=== PATIENT | male | born 1975 | race Caucasian/White ===

== ENCOUNTER 2018-06-30 11:10 | Inpatient (IN) ==
--- NOTE | 2018-06-30 11:46 | Diag Imaging Result Doc PS360 ---
EXAM: XRAY PELVIS W/HIP 2-3VW LT HISTORY: INJURY TECHNIQUE: Pelvis and left hip, three views COMPARISON: None. FINDINGS: There is a fracture to the femoral neck. Femoral head remains in the acetabulum. No other fracture to the pelvis. IMPRESSION: Left femoral neck fracture. Electronically signed by Petar Sloan 06/30/2018 11:44 AM
--- NOTE | 2018-06-30 11:49 | Diag Imaging Result Doc PS360 ---
EXAM: FEMUR MIN 2 VIEWS LEFT HISTORY: INJURY TECHNIQUE: Left femur, five views COMPARISON: None. FINDINGS: The bones are osteopenic. Femoral head remains in the acetabulum. There is a fracture to the femoral neck. Mild rotation to the femoral shaft. There is arthritis to the knee. IMPRESSION: Left femoral neck fracture. Electronically signed by Petar Sloan 06/30/2018 11:47 AM
[2018-06-30] MEDS ORDERED: MORPHINE IV ONE (12:14)
--- NOTE | 2018-06-30 12:30 | Diag Imaging Result Doc PS360 ---
EXAM: CHEST-1 VIEW HISTORY: hip fx TECHNIQUE: Chest single view COMPARISON: None. FINDINGS: The lungs are well expanded. The heart is not enlarged. No contusion. No pneumothorax. The vessels are not distended. There are no infiltrates. No effusion identified. IMPRESSION: Negative exam. Electronically signed by Petar Sloan 06/30/2018 12:28 PM
[2018-06-30 13:04] LABS: BASO# 0.03 X1000 (0.0-0.2); BASO% 0.3 % (0.0-0.8); EOS# 0.12 X1000 (0.0-0.7); HEMATOCRIT 35.1 % (42.0-52.0); HEMOGLOBIN 12.1 g/dL (14.0-18.0); IMM GRAN# 0.04 X1000 (0.0-0.04); IMM GRAN% 0.3 % (0.0-0.5); LYMPH# 2.62 X1000 (1.2-3.4); LYMPH% 22.8 % (20.5-51.1); MCH 28.8 PG (27-31); MCHC 34.5 g/dL (33-37); MCV 83.6 FL (81-99); MONO# 1.01 X1000 (0.11-0.59); MONO% 8.8 % (1.7-9.3); MPV 10.6 FL (7.4-10.4); NEUT# 7.69 X1000 (1.4-6.5); NEUT% 66.8 % (42.2-75.2); PLT 225 X1000 (130-400); RDW 15.8 % (11.5-14.5); WBC 11.51 X1000 (4.8-10.8)
[2018-06-30 13:28] LABS: AGAP 13; ALBUMIN 4.3 g/dL (3.5-5.0); ALKALINE PHOSPHATASE 65 U/L (32-122); BUN 15 mg/dL (8-22); CALCIUM 9.8 mg/dL (8.8-10.2); CHLORIDE 101 mmol/L (98-107); COSMO 282; CREATININE 0.8 mg/dL (0.7-1.2); ESTIMATED GFR > 60; GLUCOSE 239 mg/dL (70-104); GOT 15 U/L (10-34); GPT 28 U/L (10-44); POTASSIUM 4.1 mmol/L (3.5-5.1); SODIUM 137 mmol/L (136-145); TCO2 23 mmol/L (25-35); TOTAL BILIRUBIN 0.72 mg/dL (0.20-1.00); TOTAL PROTEIN 8.4 g/dL (6.3-8.3)
[2018-06-30 13:48] LABS: URINE SOURCE CLEAN CATCH
[2018-06-30 13:55] LABS: BILIRUBIN URINE NEGATIVE (NEGATIVE); BLOOD URINE SMALL (NEGATIVE); COLOR YELLOW; GLUCOSE URINE >1000 mg/dL (NEGATIVE); KETONE URINE NEGATIVE (NEGATIVE); LEUKOCYTES URINE LARGE (NEGATIVE); NITRITE URINE NEGATIVE (NEGATIVE); PH URINE 5.5; PROTEIN URINE 70 mg/dL (NEGATIVE); SP GRAVITY URINE 1.021; TURBIDITY URINE HAZY (CLEAR); UROBILINOGEN URINE NORMAL (NORMAL)
[2018-06-30 14:05] LABS: UR EPITHELIAL CELLS <10 /HPF (<10); URINE BACTERIA 4+ /HPF; URINE RBC <10 /HPF (<10); URINE WBC TNTC /HPF (<10)
[2018-06-30 14:12] LABS: URINE CASTS NONE SEEN; URINE CRYSTALS NONE SEEN; URINE SMALL ROUND CELLS NONE SEEN; URINE YEAST PRESENT
--- NOTE | 2018-06-30 14:24 | PROVIDER DOCUMENTATION ---
This chart was entered by Kristen Sotelo Scribe, acting as scribe for Nolberto Worthington CRNP. HPI-Musculoskeletal Pain/Inj - GENERAL Chief Complaint: Hip Injury Stated Complaint: WC INJURY -FELL ON HIP SLIPPED ON CARDBOARD Time Seen by Provider: 06/30/18 11:26 Source: patient - HX OF PRESENT ILLNESS-MUSKULOSKELTAL Nature of Presenting Problem: 42yom c/o L hip pain post-fall at work this afternoon. He denies loc or head injury. He denies medical problems. He denies taking any pain medications. He reports he is comfortable when he is sitting still. He denies fever, chills, nausea, vomiting, diarrhea, cp, and sob. Quality of Pain: reports: aching Severity in ED: moderate Onset/Duration: this afternoon Timing: still present, intermittent, constant Modifying Factors: improves with: nothing Similar Symptoms Previously?: No Recently seen or treated by another doctor?: No - FALL INJURY Location of Pain/Injury: reports: lower body (L hip) Pain Radiation: reports: no radiation Reason for Fall: reports: tripped Symptoms prior to fall:: reports: none Loss of Consciousness: no loss of consciousness Injury Associated Symptoms: reports: other (L hip pain) Review of Systems - Adult - REVIEW OF SYSTEMS - ADULT Constitutional: denies: chills, fever Eyes: denies: discharge, dry eyes Ears, Nose, Mouth & Throat: denies: ear discharge, ear pain Cardiovascular: denies: chest pain, palpitations Respiratory: denies: cough, shortness of breath Gastrointestinal: denies: abdominal pain, diarrhea, nausea, vomiting Genitourinary: denies: dysuria, hematuria Musculoskeletal: reports: other (L hip pain). denies: back pain Integumentary: reports: no symptoms reported Neurological: denies: dizziness/vertigo, headache/migraines Psychiatric: reports: no symptoms reported Endocrine: reports: no symptoms reported Hematologic/Lymphatic: reports: no symptoms reported Allergic/Immunologic: reports: no symptoms reported All Other Systems: Reviewed and Negative Past History - Adult - PAST MEDICAL HISTORY-ADULT Review of Records: reports: Old Records Reviewed, Nursing Assessment Review, Medications Reviewed - PRIOR SURGERIES/PROCEDURES Surgical/Procedure History: reports: none - IMMUNIZATION STATUS Childhood Immunizations: See Nurse Assessment Flu Vaccine: See Nurse Assessment - FAMILY HISTORY Family History: reviewed, not pertinent - SOCIAL HISTORY Smoking: non-smoker Substance Use: denies Living Situation: family Physical Exam-Injury Related - Physical Exam-Injury Related Initial Vital Signs Reviewed: Yes General Appearance: alert, no apparent distress, other (pt is comfortable when he is sitting still) Immobilization?: negative: backboard, C-collar Eyes: PERRL/EOMI, pink conjunctivae Head, Ears, Nose, Mouth & Throat: normocephalic/atraumatic, moist mucous membranes Neck: non-tender, full range of motion, supple Respiratory: chest non-tender, lungs clear, normal breath sounds, no pleuratic chest pain, no respiratory distress, no accessory muscle use Cardiovascular: regular rate, rhythm, no murmur Abdominal Exam: non tender, soft Back Exam: normal inspection, no CVA tenderness, no vertebral tenderness Extremity: no pedal edema, tenderness (L hip), other (LBKA) Integumentary: normal color, warm/dry Neurologic: grossly normal, no motor/sensory deficits Psych/Mental Status: normal mood/affect, normal thought content, normal thought process, oriented x 3 - Glascow Coma Score Best Eye Response ([place]): (4) open spontaneously Best Verbal Response ([place]): (5) oriented Best Motor Response ([place]): (6) obeys commands [place] Total: 15 Progress - PLAN OF CARE/RESULTS Progress/Plan/Lab Results: Vital Signs - 8 hr 06/30/18 11:14 06/30/18 12:26 06/30/18 12:27 Temperature 97.8 F Pulse Rate 94 H 99 H 100 H Respiratory Rate 18 16 16 Blood Pressure 167/83 168/92 O2 Sat by Pulse Oximetry 100 99 98 06/30/18 12:30 06/30/18 12:40 06/30/18 12:50 Temperature Pulse Rate 98 H 95 H 91 H Respiratory Rate 18 11 L 16 Blood Pressure O2 Sat by Pulse Oximetry 98 97 99 06/30/18 13:00 06/30/18 13:10 06/30/18 13:20 Temperature Pulse Rate 97 H 123 H Respiratory Rate 15 Blood Pressure O2 Sat by Pulse Oximetry 98 99 98 06/30/18 13:30 06/30/18 13:40 Temperature Pulse Rate 95 H Respiratory Rate 15 Blood Pressure O2 Sat by Pulse Oximetry 98 100 Laboratory Results - last 24 hr 06/30/18 06/30/18 06/30/18 12:35 12:35 13:40 WBC 11.51 H RBC 4.20 L Hgb 12.1 L Hct 35.1 L MCV 83.6 MCH 28.8 MCHC 34.5 RDW Std Deviation 15.8 H Plt Count 225 MPV 10.6 H Immature Gran % (Auto) 0.3 Neut % (Auto) 66.8 Lymph % (Auto) 22.8 [place] % (Auto) 8.8 Eos % (Auto) 1.0 Baso % (Auto) 0.3 Immature Gran # (Auto) 0.04 Neut # (Auto) 7.69 H Lymph # (Auto) 2.62 [place] # (Auto) 1.01 H Eos # (Auto) 0.12 Baso # (Auto) 0.03 Sodium 137 Potassium 4.1 Chloride 101 Carbon Dioxide 23 L Anion Gap 13 BUN 15 Creatinine 0.8 Estimated GFR/1.73 m2 > 60 BUN/Creatinine Ratio 19 Glucose 239 H Calculated Osmolality 282 Calcium 9.8 Total Bilirubin 0.72 AST 15 ALT 28 Alkaline Phosphatase 65 Total Protein 8.4 H Albumin 4.3 Globulin 4.1 Albumin/Globulin Ratio 1.0 Urine Source CLEAN CATCH Urine Color YELLOW Urine Turbidity HAZY Urine pH 5.5 Ur Specific [place] 1.021 Urine Protein 70 A Ur Glucose (Stick) >1000 A Ur Ketones (Stick) NEGATIVE Urine Blood SMALL A Urine Nitrite NEGATIVE Urine Bilirubin NEGATIVE Urobilinogen Dipstick NORMAL Urine Leukocytes LARGE A Urine WBC (Auto) TNTC A Urine RBC (Auto) <10 U Epithel Cells (Auto) <10 Urine Bacteria (Auto) 4+ Urine Crystals NONE SEEN Small Round Cells NONE SEEN Urine Casts NONE SEEN Urine Yeast-like Cells PRESENT Orders Category Date Time Status IV Insertion ORDERED Care 06/30/18 12:14 Completed CHEST-1 VIEW [RAD] Stat Exams 06/30/18 12:14 Completed FEMUR MIN 2 VIEWS LEFT [RAD] Stat Exams 06/30/18 11:17 Completed XRAY PELVIS W/HIP 2-3VW LT [RAD] Stat Exams 06/30/18 11:17 Completed CBC WITH ELECTRONIC DIFF [HEME] Stat Lab 06/30/18 12:35 Completed COMPREHENSIVE METABOLIC PANEL [CHEM] Stat Lab 06/30/18 12:35 Completed OHG URINE DRUG SCREEN Stat Lab 06/30/18 13:38 Ordered URINALYSIS W/POSS RFLX CULT [URINALYSIS] Stat Lab 06/30/18 13:40 Completed URINE CULTURE [RM] Routine Lab 06/30/18 14:05 Received URINE MANUAL MICROSCOPIC [URINALYSIS] Stat Lab 06/30/18 13:40 Completed Morphine Med 06/30/18 12:14 Discontinued 4 mg IV NOW ONE Called Dr. Flood who was in the OR, advised he would look at the XR. Result Diagrams: 06/30/18 12:35 06/30/18 12:35 - XRAY 1 XRAY Study: Chest Impression: Normal (FINDINGS: The lungs are well expanded. The heart is not enlarged. No contusion. No pneumothorax. The vessels are not distended. There are no infiltrates. No effusion identified. IMPRESSION: Negative exam.) 2 XRAY Study: Pelvis, Hip (Left) Impression: Abnormal (FINDINGS: There is a fracture to the femoral neck. Femoral head remains in the acetabulum. No other fracture to the pelvis. IMPRESSION: Left femoral neck fracture.) 3 XRAY: Left XRAY Study: Femur Impression: Abnormal ( FINDINGS: The bones are osteopenic. Femoral head remains in the acetabulum. There is a fracture to the femoral neck. Mild rotation to the femoral shaft. There is arthritis to the knee. IMPRESSION: Left femoral neck fracture.) - CONSULTS/PCP/HOSPITALIST Notification #1 *Consult/PCP/Hospitalist*: Dr Flood Reason/Comments: Discussed with him the findings of the pt XR, and PE findings Consult Disposition: Admit (to hospitalist) #2 Consult: Dr. Tipton Time Discussed: 14: Reason/Comments: admission Consult Disposition: Admit Departure - Departure Date of Disposition Decision: 06/30/18 Time of Disposition Decision: 14:23 DIAGNOSIS: Hip fracture Disposition: ADMITTED INPATIENT 09 Certified Medical Emergency: Emergent Condition: Stable Referrals and Follow-Ups: LISSETH LEOS [Primary Care Provider] - - Critical Care Note This patient required my direct & personal management of CC.: No Attestation - Physician/ ANDRADE Attestation Patient care was provided by Advanced Practice Provider:: Yes Advanced Practice Provider:: Nolberto Worthington Advanced Practice Provider documentation review:: The Mid-level provider documentation, treatment plan and medical decision making was reviewed by the physician who agrees with all treatment and medical decision making by the MLP. The physician spent face to face time with patient:: No Advanced Practice Provider documentation review:: Supervising physician onsite and consulted in the evaluation and care of this patient. The physician did not have a face to face encounter with the patient. This chart was documented by the indicated scribe, (Kristen Sotelo Scribe) and accurately reflects the services I performed and decisions made by , Nolberto Worthington CRNP, as attested by the provider's signature.
[2018-06-30] MEDS ORDERED: KEFZOL 2 GM/D5W 2 GM/50 ML IVPB IV ONE (15:25)
[2018-06-30] MEDS ORDERED: NS 1,000 ML IV ONE (15:42)
[2018-06-30 16:19] LABS: HEMOGLOBIN A1C 7.1 % (4.8-6.0)
[2018-06-30 16:20] LABS: IRON SATURATION 11 %; TIBC 290 ug/dL; TOTAL IRON 33 ug/dL (53-167); UNBOUND IRON 257 ug/dL (112-346)
[2018-06-30] MEDS: MORPHINE IV PRN ×2 (17:12→21:32)
[2018-06-30] MEDS: HUMALOG SUBQ SCH ×2 (17:13→22:40)
--- NOTE | 2018-06-30 20:42 | HISTORY AND PHYSICAL ---
ADDENDUM: I agree with most components of history, physical, assessment, and plan. In brief, Mr. Moore is a 42-year-old man, with a past medical history of insulin-dependent diabetes mellitus, diabetic foot ulcer status post left below-knee amputation and prosthesis, who comes in with a mechanical fall on the left side, and is found to have left-sided femoral neck displaced closed fracture. Currently, the patient is complaining of left hip pain, but does not appear in any acute distress. His vitals reveal a temperature of 99, pulse 97, respiratory rate 16, blood pressure 148/82, saturating 100% on room air. PHYSICAL EXAMINATION: LUNGS: Air entry is bilaterally equal. No wheeze, rhonchi, or crackles. CARDIOVASCULAR: S1, S2 normal. No murmur, rub, or gallop. EXTREMITIES: He has left below-knee amputation, and he has severe tenderness over left thigh and the left hip joint. Right lower extremity, he has multiple calluses affecting the right foot, and poor nail health, with an ulcer affecting the right great toe. LABS: Labs are remarkable for a slight leukocytosis of 11,000, with hemoglobin of 12.1. Normal kidney function. Urinalysis is positive for moderate proteinuria and glucosuria. ASSESSMENT AND PLAN: 1. Left femoral neck displaced closed fracture. Orthopedics consulted, and they are planning surgical intervention tomorrow. 2. Essential hypertension. 3. Left hip pain. 4. Insulin-dependent diabetes mellitus. cc: Damien Tipton MD
[2018-07-01] MEDS: MORPHINE IV PRN ×4 (03:54→23:24)
[2018-07-01 06:39] LABS: BASO# 0.04 X1000 (0.0-0.2); BASO% 0.4 % (0.0-0.8); EOS# 0.24 X1000 (0.0-0.7); EOS% 2.5 % (0.0-10.0); HEMATOCRIT 32.1 % (42.0-52.0); HEMOGLOBIN 10.9 g/dL (14.0-18.0); IMM GRAN# 0.02 X1000 (0.0-0.04); IMM GRAN% 0.2 % (0.0-0.5); LYMPH# 2.51 X1000 (1.2-3.4); LYMPH% 26.2 % (20.5-51.1); MCV 85.4 FL (81-99); MONO# 0.89 X1000 (0.11-0.59); MONO% 9.3 % (1.7-9.3); NEUT# 5.89 X1000 (1.4-6.5); NEUT% 61.4 % (42.2-75.2); PLT 192 X1000 (130-400); RBC 3.76 XMIL (4.7-6.1); RDW 16.1 % (11.5-14.5); WBC 9.59 X1000 (4.8-10.8)
[2018-07-01 07:01] LABS: AGAP 10; BUN 11 mg/dL (8-22); CALCIUM 8.9 mg/dL (8.8-10.2); CHLORIDE 100 mmol/L (98-107); COSMO 279; CREATININE 0.8 mg/dL (0.7-1.2); ESTIMATED GFR > 60; GLUCOSE 196 mg/dL (70-104); POTASSIUM 3.9 mmol/L (3.5-5.1); SODIUM 137 mmol/L (136-145); TCO2 27 mmol/L (25-35)
[2018-07-01] MEDS: HUMALOG SUBQ SCH ×4 (08:03→21:29)
--- NOTE | 2018-07-01 08:38 | PROGRESS NOTE ---
DATE: 07/01/2018 INTERVAL HISTORY: No acute overnight events. Patient has been NPO since midnight. He denies any new complaints, except pain at the left hip site, which is reasonably controlled with pain medication. Denies chest pain or shortness of breath. I discussed with him about post surgery medical course that happens after hip surgery, and answered all of his questions. VITAL SIGNS: Temperature 98.9 degrees, pulse 89, respiratory rate 20, blood pressure 138/80, saturating 95% on room air. PHYSICAL EXAMINATION: General: Appears to be not in any acute distress. HEENT: Oral cavity moist. He has bilateral tonsillar enlargement, without exudates or erythema or inflammation. Lungs: Air entry bilaterally equal. No wheeze, rhonchi, or crackles. Cardiovascular: S1, S2 normal. No murmur, rub, or gallop. Abdomen: Obese, soft, and nontender. Bowel sounds are active. Extremities: He has left below-knee amputation and tenderness over left thigh and left hip joint. Circulation in the stump appears intact. Right lower extremity has multiple calluses affecting the right foot, poor nail health, with a superficial ulcer affecting the right great toe, which does not appear infected. LABS: Today, suggestive of normal WBC count, slight drop in hemoglobin and hematocrit from yesterday, normal platelet count, normal electrolytes with kidney function and hyperglycemia. His drop in hemoglobin is likely related to blood loss and hip surgery site, as well as intravenous fluids that he had received. ASSESSMENT AND PLAN: 1. Left femoral neck displaced fracture, closed. The patient likely to undergo surgical intervention today. The patient is NPO after midnight. Continue morphine 4 mg IV q.4 hours for pain. Cefazolin has been added by the orthopedic team for infection prophylaxis. 2. Essential hypertension. Continue home losartan. 3. History of insulin-dependent diabetes mellitus. Continue sliding scale insulin. Adjust dose according to response. 4. Vitamin D deficiency. Start patient on cholecalciferol. 5. History of hypospadias, diabetic foot infection, requiring below-knee amputation in 2017. Aware. I had extensively counseled the patient about need for properly controlling diabetes, taking good care of his foot, and the fact that he has proteinuria and he needs to check his kidney function on a periodic basis. I had answered all of his questions. cc: Damien Tipton MD
[2018-07-01] MEDS: COZAAR PO SCH (09:10)
[2018-07-01] MEDS ORDERED: FENTANYL ONE (12:09)
[2018-07-01] MEDS ORDERED: VERSED ONE (12:09)
[2018-07-01] MEDS ORDERED: DIPRIVAN 1% ONE (12:10)
[2018-07-01] MEDS ORDERED: NEOSPORIN G.U. IRRIGANT ONE (12:26)
[2018-07-01] MEDS ORDERED: ZOFRAN ONE (14:25)
[2018-07-01] MEDS ORDERED: NEO-SYNEPHRINE ONE (14:25)
[2018-07-01] MEDS ORDERED: PITRESSIN ONE (14:26)
[2018-07-01] MEDS: MORPHINE ONE ×3 (15:37→15:50)
[2018-07-01 15:39] LABS: URINE SOURCE CATH
--- NOTE | 2018-07-01 15:39 | OPERATIVE NOTE ---
PROCEDURE DATE: 07/01/2018 PREOPERATIVE DIAGNOSIS: Left nondisplaced subcapital femoral neck. POSTOPERATIVE DIAGNOSIS: Left nondisplaced subcapital femoral neck. PROCEDURE: Closed reduction and percutaneous pinning of left nondisplaced subcapital femoral neck fracture with three 7.3 cannulated screws. ANESTHESIA: General. SURGEON: Dequan Flood MD. GRAIN COMMODITY MANAGER: None. COMPLICATIONS: None. BLOOD LOSS: Minimal. DESCRIPTION OF PROCEDURE: Patient brought to the operative suite and placed in supine position. After successful administration of general anesthesia, the patient was placed on the OSI table in the usual position for left hip .the left hip was then prepped and draped in usual sterile fashion. A longitudinal incision was made overlying the flare of the greater trochanter. This was dissected sharply through the skin and then three 7.3 cannulated screw guide pins were placed in an inverted triangle fashion. Once these were verified to be in good position on AP and lateral fluoroscopy images, the outer cortex was reamed, proper length screws were measured and driven into place. Excellent reduction of the fracture and placement of hardware was obtained on AP and lateral images. The guide pins were removed. The incision was copiously irrigated with normal saline containing irrigant. The skin edge was approximated, 2-0 Vicryl skin was closed with skin alix and a sterile dressing was applied. The patient tolerated the procedure well without complication. At the end the procedure, all counts were correct x 2. Prior to this procedure he was found to have a stricture in his urethra and they were unable to pass a Alvarez. Therefore, Urology was consulted and he proceeded with that portion of the case. cc: Dequan Flood MD [facility]
[2018-07-01 15:49] LABS: BILIRUBIN URINE NEGATIVE (NEGATIVE); BLOOD URINE MODERATE (NEGATIVE); COLOR ORANGE; GLUCOSE URINE NEGATIVE (NEGATIVE); KETONE URINE NEGATIVE (NEGATIVE); LEUKOCYTES URINE LARGE (NEGATIVE); NITRITE URINE NEGATIVE (NEGATIVE); PH URINE 5.5; PROTEIN URINE TRACE mg/dL (NEGATIVE); SP GRAVITY URINE 1.002; TURBIDITY URINE HAZY (CLEAR); UROBILINOGEN URINE NORMAL (NORMAL)
[2018-07-01 16:08] LABS: UR EPITHELIAL CELLS <10 /HPF (<10); URINE BACTERIA 2+ /HPF; URINE WBC TNTC /HPF (<10)
[2018-07-01 16:12] LABS: URINE CASTS GRANULAR PRESENT; URINE CRYSTALS NONE SEEN; URINE SMALL ROUND CELLS TRANS PRESENT; URINE YEAST NONE SEEN
[2018-07-01] MEDS ORDERED: ZOFRAN IV PRN (16:37)
[2018-07-01] MEDS ORDERED: MILK OF MAGNESIA PO PRN (16:37)
--- NOTE | 2018-07-01 16:54 | OPERATIVE NOTE ---
PROCEDURE DATE: 07/01/2018 PREOPERATIVE DIAGNOSIS: History of hypospadias repair. POSTOPERATIVE DIAGNOSES: 1. History of hypospadias repair. 2. Urethral stricture of the anterior urethra. PROCEDURE PERFORMED: Cystoscopy with urethral dilation and catheter placement. SURGEON: Angelito Uribe MD. COMPLICATIONS: None. BLOOD LOSS: None. DRAINS: 14-Indonesian silicone catheter. SPECIMENS REMOVED: None. OPERATIVE FINDINGS: The patient was intraoperative consult due to difficulty with catheter placement. Had been attempted several times on the floor as well as in the operating room. Urology was consulted for further recommendations. I attempted to place a 14- Indonesian silicone catheter but met resistance within the penile urethra. This seemed to be a very dense, firm stricture. I was able to pass a wire easily through the urethra and this was felt to coil within the bladder. Attempted to pass the cystoscope over the wire and visualize the urethra, but there appeared to be a very dense stricture present. I was able to use a flexible ureteroscope and passed this all the way into the bladder and then slowly withdrawing showing a very dense penile urethral stricture that seemed to account for the entirety of the penile urethra. Mucosa was very pale and hypovascular. At which time, a Bard kit was used to dilate the urethra starting at 12-Indonesian and increasing up to 18-Indonesian. At which time, I was able to pass the flexible cystourethroscope up into the bladder and the entirety of the bladder was inspected with no evidence the mucosal abnormalities. Bilateral ureteral orifices were visualized. There was a significant amount of sediment throughout the bladder, likely related to a chronic incomplete emptying. At which time, the cystourethroscope was then completely removed and a 14-Indonesian silicone catheter easily passed over the wire and into the bladder. This was inflated with 10 mL of sterile water and placed to gravity drainage. INDICATIONS FOR PROCEDURE: Mr. Moore is a 42-year-old who presented as an intraoperative consult for difficult catheter placement. The patient sustained a left femoral neck fracture yesterday and presented for orthopedic pinning today. However, had attempted to try to place a catheter both on the floor as well as in the operating room and had significant difficulty. Urology was consulted for further recommendations. In talking with the family afterwards, it sounds like the patient has a history of hypospadias that was repaired as a young child and has had significant issues with this since. The patient has undergone multiple penile procedures for strictures and states that a procedure was done in [place] per his family approximately 3 years ago. They were not sure who the surgeon was. Due to significant difficulty passing a catheter, urology was consulted for further recommendations. DESCRIPTION OF PROCEDURE: Intraoperative consult was provided to Dr. Flood following his procedure. Inspection of the penis showed an appearance of lichen sclerosis with significant scarring present of the glans. No evidence of any redundant foreskin, but significant penile swelling that appears to be related to chronic inflammation was visualized. His meatus was in the midportion of the glans and was abnormal in appearance. I was able to obtain a catheter kit and attempted to place a 14-Indonesian silicone catheter. However, approximately a centimeter into the urethra there was a dense obstructing stricture that did not allow for passage of the catheter any farther. At which time, I passed a ZIPwire through this area and then attempted to pass a flexible cystourethroscope over the wire. However, this was unable to pass due to resistance. I was able to obtain a flexible ureteroscope and passed this all the way up into the bladder and then slowly withdrawn, which showed a very dense, long penile urethral stricture that appeared encompass all the way to his bulbar urethra. Following this, a Bard dilator kit was then obtained and the urethra was dilated from 12-Indonesian which met a small resistance up to an 18- Indonesian which required a fair bit of pressure to pass all the way through the dense stricture. Following this, I was able to easily pass the cystourethroscope easily through the urethra. The entire bladder was inspected. Both ureteral orifices were visualized. No evidence of any mucosal abnormalities were seen within the bladder. A significant amount of sediment was seen at the base of the bladder, likely related to incomplete emptying. Cystourethroscope was then slowly withdrawn and visualized normal- appearing prostate and the posterior urethra. The stricture seemed to abut the distal portion of the bulbar urethra and travel all the way into the penile urethra to the fossa navicularis. Mucosa was very pale and hypovascular. Cystourethroscope was completely removed. An 18-gauge needle was then passed through the catheter and the catheter was then passed over a wire and passed easily into the bladder. It was inflated with 10 mL of sterile water with return of over 300 mL of urine with sediment present. It was placed to gravity drainage with StatLock and my portion of the procedure was terminated. cc: Angelito Uribe MD MTDD
[2018-07-01] MEDS: TYLENOL PO SCH (18:40)
[2018-07-01] MEDS: COLACE PO SCH (21:27)
[2018-07-01] MEDS: OXY IR PO PRN (21:27)
[2018-07-01] MEDS: PERIDEX MT SCH (21:27)
[2018-07-02] MEDS: TYLENOL PO SCH ×3 (01:15→17:16)
[2018-07-02] MEDS: MORPHINE IV PRN ×7 (02:41→20:48)
[2018-07-02] MEDS: OXY IR PO PRN ×4 (03:55→17:17)
--- NOTE | 2018-07-02 04:10 | HISTORY AND PHYSICAL ---
CHIEF COMPLAINT: Fall with left hip pain. HISTORY OF PRESENT ILLNESS: Mr. Moore is a 42-year-old male with a history of morbid obesity and type 2 diabetes mellitus requiring insulin who presents status post mechanical trip and fall while at work today. He said he was moving a cardboard display when the header fell off, and he subsequently slipped on the cardboard that was on the floor. He hit the left side of his body and immediately began experiencing pain in the hip. He denies any head trauma. No loss of consciousness. No syncope. No preceding chest pain or dyspnea. When he got to the ER, he was found to have a left femoral neck fracture. His laboratory data shows some mild anemia and a blood sugar of 239, and urinalysis does show bacteria, but he is asymptomatic. As such, he is going to be admitted for further treatment. Dr. Flood with Orthopaedics has been consulted. PAST MEDICAL HISTORY: 1. Diabetes mellitus type 2 requiring insulin. 2. Obesity. 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 He has also had a hypospadias repair. SOCIAL HISTORY: No tobacco, alcohol or drug use. He works at a [employer]. Parents are at the bedside. FAMILY HISTORY: Noncontributory. REVIEW OF SYSTEMS: A 14-point review of systems obtained by me was negative with the exception of the HPI. ALLERGIES: No known drug allergies. HOME MEDICATIONS: 1. NovoLog 70/30 as directed. 2. Losartan/potassium 50 mg daily. 3. Glucophage XR 1000 p.o. every morning. REVIEW OF SYSTEMS: A 14-point review of systems was obtained and found to be negative with the exception of the HPI. PHYSICAL EXAMINATION VITAL SIGNS: Blood pressure is 157/90, heart rate 94, respiratory rate 16, O2 saturation 100% on room air. Temperature is 98.4. GENERAL: Obese male lying in a hospital bed in no acute distress. NEUROLOGIC: Awake, alert and oriented. Follows commands without focal deficits. HEENT: Head is atraumatic, normocephalic. His pupils are equal, round, and reactive to light. Oral mucosa is moist. NECK: Trachea is midline. There is no JVD. CHEST: Clear to auscultation. CV: Regular rate and rhythm. S1 and S2 noted. There are no murmurs. GI: Nondistended, nontender. Bowel sounds active. EXTREMITIES: Left BKA noted. Right lower extremity with 1+ edema. Pulses are diminished at 1+. He also has a mild abrasion to the tip of his right great toe. There is no evidence of infection at this time. DIAGNOSTIC DATA: Hip, pelvis and femur x-rays show a femoral neck fracture on the left. Chest x- ray is negative. WBCs 11.51, hemoglobin 12.1, hematocrit 35.1, platelet count 225. Sodium 137, potassium 4.1, chloride 101. CO2 is 23, anion gap 13, BUN 15, creatinine 0.8, glucose 239. LFTs within normal limits. Protein 8.4. UA does show large leukocyte and tjd-pzzgeket-sm-count WBCs with 4+ bacteria. ASSESSMENT/PLAN: 1. Left femoral neck fracture status post mechanical fall: Orthopaedics has been consulted. He is scheduled for surgery tomorrow. Will keep him n.p.o. after midnight. Continue pain management, and will consult social work for possible placement and rehab after surgery . 2. Diabetes mellitus type 2 requiring insulin with hyperglycemia: Will check a hemoglobin A1c. Add pattern sugars and sliding-scale insulin and continue his home medications. Will hold metformin. 3. Anemia: Presumably secondary to chronic disease. Will check iron studies and treat accordingly. 4. Asymptomatic bacteruria: The patient denies any dysuria. Will hold antibiotics for now. Cultures are pending. 5. Deep venous thrombosis prophylaxis after surgery. 6. Further recommendations to follow. Dictated by JAZIEL Hernandez for Damien Tipton MD cc: JAZIEL Hernandez MD
[2018-07-02] MEDS: XARELTO PO SCH (05:14)
[2018-07-02] MEDS: HUMALOG SUBQ SCH ×4 (06:40→22:28)
--- NOTE | 2018-07-02 06:56 | PROGRESS NOTE ---
DATE: 07/02/2018 SUBJECTIVE: No acute events overnight. The patient had gone to the OR yesterday for a pinning of the left hip after a femoral fracture. Nursing attempted to place a catheter at that time. Urology is consulted due to difficulty and history of urethral surgery. I was able to perform cystoscopy with urethral dilation and catheter placement. The patient describes today being seen by Dr. Rocha over a number of years, most recently three to four years ago. He was told to do self catheterization at that time. However, he ran out of self catheters and has not done it in a number of months now. He states that he is having issues with urination with difficulty voiding and sensation of incomplete emptying. The patient denies any urethral discomfort or pain today. His urethral catheter is draining well with clear yellow urine. PHYSICAL EXAMINATION: Vital Signs: Temperature 99.3 degrees, heart rate 90, blood pressure 126/72, respirations 20. General: No acute distress. Resting comfortably in bed. Respiratory: Good respiratory effort without audible wheezing or rales. Cardiovascular: No evidence of tachycardia. Extremities: The patient has a left cslxw-jao-hope amputation. Abdomen: Abdomen is soft, nontender, nondistended. : No suprapubic tenderness. Urethral catheter in place, draining clear yellow urine. No evidence of any blood. The patient's phallus has the appearance of lichen sclerosis, likely related to prior surgeries. ASSESSMENT AND PLAN: Mr. Moore is a 42-year-old with type 2 diabetes, obesity, history of hypospadias repair, as well as multiple urethral procedures in the past, who presents in evaluation for difficulty with catheterization. Nurses on the floor had attempted to catheterize him several times and were having difficulty. Once he was in the operating room yesterday, OR nurses also had difficulty placing a catheter. Urology was consulted for further recommendations. On evaluation, the patient has appearance of lichen sclerosis with involvement of the glans and a large portion of his urethra. urethra. On cystoscopy, it did appear that the patient had a significant narrowing of the almost entire pendulous urethra until the distal portion of the bulbar urethra. I was able to pass a wire and pass urethral dilators over the wire to assist in dilation, and performed a complete cystoscopy which showed no evidence of any bladder tumors or masses in the bladder, just evidence of sediment, likely from incomplete emptying. I was able to subsequently place a 14-Tajik silicone catheter over wire which passed easily into the bladder with return of clear yellow urine. We will continue with indwelling catheter at this time. I told the patient that he may need to consider returning to clean intermittent catheterization to try to keep this area open. I told him that we could talk about it at a later date. I think I will leave his catheter in for at least three to five days to allow for complete emptying. We will follow up his urine culture and treat with culture specific antibiotics if positive. Previous culture was negative to growth from two days ago. Likely will need reconstructive surgery in [place] with Dr. Mcclelland. We will plan to refer him there once he completes recovery from his hip fracture. cc: Angelito Uribe MD MTDD
[2018-07-02 06:58] LABS: AGAP 11; BUN 9 mg/dL (8-22); CALCIUM 8.7 mg/dL (8.8-10.2); CHLORIDE 99 mmol/L (98-107); COSMO 277; CREATININE 0.8 mg/dL (0.7-1.2); ESTIMATED GFR > 60; GLUCOSE 207 mg/dL (70-104); POTASSIUM 3.8 mmol/L (3.5-5.1); SODIUM 136 mmol/L (136-145); TCO2 26 mmol/L (25-35)
[2018-07-02 07:05] LABS: BASO# 0.04 X1000 (0.0-0.2); BASO% 0.5 % (0.0-0.8); EOS# 0.29 X1000 (0.0-0.7); EOS% 3.3 % (0.0-10.0); HEMATOCRIT 30.6 % (42.0-52.0); HEMOGLOBIN 10.3 g/dL (14.0-18.0); IMM GRAN# 0.02 X1000 (0.0-0.04); IMM GRAN% 0.2 % (0.0-0.5); LYMPH# 2.56 X1000 (1.2-3.4); LYMPH% 29.1 % (20.5-51.1); MCH 28.9 PG (27-31); MCHC 33.7 g/dL (33-37); MCV 85.7 FL (81-99); MONO# 0.96 X1000 (0.11-0.59); MONO% 10.9 % (1.7-9.3); MPV 10.4 FL (7.4-10.4); NEUT# 4.92 X1000 (1.4-6.5); PLT 195 X1000 (130-400); RBC 3.57 XMIL (4.7-6.1); WBC 8.79 X1000 (4.8-10.8)
[2018-07-02] MEDS ORDERED: VITAMIN D PO SCH (07:30)
--- NOTE | 2018-07-02 07:49 | EKG Report ---
Test Performed on : 06/30/2018 4:57:31 PM Test Reason : preop Blood Pressure : / mmHG Vent. Rate : 096 BPM Atrial Rate : 096 BPM P-R Int : 196 ms QRS Dur : 114 ms QT Int : 344 ms P-R-T Axes : 024 -42 055 degrees QTc Int : 434 ms Normal sinus rhythm. Left axis deviation Incomplete left bundle branch block Minimal voltage criteria for LVH, may be normal variant Abnormal ECG No previous ECGs available Confirmed by Ronal Yeboah MD ([id number]) on 07/02/2018 9:13:03 PM
[2018-07-02] MEDS: PERIDEX MT SCH ×2 (08:34→20:54)
[2018-07-02] MEDS: COZAAR PO SCH (08:35)
[2018-07-02] MEDS: GLUCOPHAGE XR PO SCH (08:36)
--- NOTE | 2018-07-02 18:06 | PROGRESS NOTE ---
DATE: 07/02/2018 INTERVAL HISTORY: Patient underwent closed reduction with percutaneous pinning off his left femoral neck fracture. While in the OR, he also underwent cystoscopy with urethral dilatation and Alvarez catheter placement by Urology because of history of hypospadias and multiple strictures in the past. SUBJECTIVE: Patient is sitting in the chair. He is feeling fine, denying any complaints. VITALS: Temperature 98.5 degrees, pulse 97, respiratory rate 16, blood pressure 105/66, saturating 98% on room air. PHYSICAL EXAMINATION: General: He does not appear in any acute distress. He does appear obese, though. HEENT: Oral cavity moist. Lungs: Air entry bilaterally equal. No wheeze, rhonchi, crackles. Cardiovascular: S1, S2 normal. No murmur, rub, or gallop. Abdomen: Obese, soft, nontender. Active bowel sounds. Genitourinary: He also has a Alvarez catheter. Extremities: He has left below-knee amputation. Tenderness over left lateral thigh at the site of surgery. Right lower extremity has on my previous examination calluses affecting dorsal and plantar aspects with poor nail health and superficial ulcers affecting the right great toe, which did not appear infected. LABORATORY DATA: Today suggestive of hemoglobin of 10.3. Otherwise normal electrolytes. Normal kidney function. Mild hyperglycemia, which is mostly in acceptable range. ASSESSMENT AND PLAN: 1. Left femoral neck displaced fracture, closed, status post closed reduction and percutaneous pinning by Orthopedics on 07/01/2018. Continue oxycodone, acetaminophen, and morphine for pain. Continue Xarelto for DVT prophylaxis as per Orthopedics recommendation. 2. Essential hypertension. Continue home losartan at a lower dosage. 3. History of insulin-dependent diabetes mellitus with home metformin. Continue home metformin and sliding scale insulin. 4. Vitamin D deficiency. Start patient on cholecalciferol. 5. History of hypospadias. 6. Diabetic foot infection requiring below-knee amputation in 2017. Aware. 7. He is status post urine catheter placement by Urology. They are planning to keep the catheter for at least 3 to 5 days to allow complete emptying, and the plan is to follow up with urine culture and treat with culture-specific antibiotics if positive. According to Urology, he would likely need reconstructive surgery in the future. DISPOSITION: The patient remains inside the hospital. He has been provided rehabilitation options, which he will choose from. I am anticipating discharge in next 24 to 48 hours. All of his questions have been answered satisfactorily. cc: Damien Tipton MD
--- NOTE | 2018-07-02 18:25 | PROGRESS NOTE ---
DATE: 07/02/2018 SUBJECTIVE: Mr. Moore is a 42-year-old male who is postoperative day 1 from a closed reduction percutaneous pinning of the left femoral neck fracture. He complains of some soreness in his left hip but overall it is doing well. OBJECTIVE: He is a well developed, well nourished male. He is alert, oriented, and cooperative with examination. He is in no acute distress. Vital signs are stable. He is afebrile. His left hip dressing is clean, dry and intact. Left leg is neurovascularly intact. ASSESSMENT: Stable postoperative day 1 from a left hip closed reduction, percutaneous pinning the femoral neck fracture. PLAN: We will have him continue working with physical therapy and we will continue to monitor him and manage his pain. Hopefully he can be discharged to rehab later this week. Dictated by BRITTANY Andrade for Dequan Flood MD cc: BRITTANY Andrade MD
[2018-07-02] MEDS: COLACE PO SCH (20:54)
[2018-07-03] MEDS: TYLENOL PO SCH ×4 (00:37→23:45)
[2018-07-03] MEDS: OXY IR PO PRN ×6 (06:19→23:45)
[2018-07-03] MEDS: XARELTO PO SCH (06:20)
[2018-07-03] MEDS: HUMALOG SUBQ SCH ×4 (06:20→20:20)
[2018-07-03 07:00] LABS: BASO# 0.03 X1000 (0.0-0.2); BASO% 0.3 % (0.0-0.8); EOS# 0.28 X1000 (0.0-0.7); EOS% 3.1 % (0.0-10.0); HEMATOCRIT 32.1 % (42.0-52.0); HEMOGLOBIN 10.9 g/dL (14.0-18.0); IMM GRAN# 0.02 X1000 (0.0-0.04); IMM GRAN% 0.2 % (0.0-0.5); LYMPH# 1.37 X1000 (1.2-3.4); LYMPH% 14.9 % (20.5-51.1); MCH 28.7 PG (27-31); MCV 84.5 FL (81-99); MONO# 1.22 X1000 (0.11-0.59); MONO% 13.3 % (1.7-9.3); MPV 10.3 FL (7.4-10.4); NEUT# 6.26 X1000 (1.4-6.5); NEUT% 68.2 % (42.2-75.2); PLT 197 X1000 (130-400); RDW 16.3 % (11.5-14.5); WBC 9.18 X1000 (4.8-10.8)
[2018-07-03 07:18] LABS: AGAP 12; BUN 16 mg/dL (8-22); CALCIUM 9.1 mg/dL (8.8-10.2); CHLORIDE 98 mmol/L (98-107); COSMO 276; CREATININE 0.9 mg/dL (0.7-1.2); ESTIMATED GFR > 60; GLUCOSE 221 mg/dL (70-104); POTASSIUM 3.7 mmol/L (3.5-5.1); SODIUM 134 mmol/L (136-145); TCO2 24 mmol/L (25-35)
--- NOTE | 2018-07-03 10:12 | PROGRESS NOTE ---
DATE: 07/03/2018 SUBJECTIVE: Mr. Moore is a 42-year-old who is postoperative day 2 from a closed reduction and percutaneous pinning of a left femoral neck fracture. He states he is doing well. OBJECTIVE: General: He is a well developed, well nourished male. He is alert, oriented, and cooperative with examination. He is in no acute distress. Vital Signs: Stable. He is afebrile. Extremities: His left hip incisions are clean, dry and intact. Left leg is neurovascularly intact. ASSESSMENT: Postoperative day 2 from a left hip closed reduction and percutaneous pinning of left femoral neck fracture. PLAN: We will have him continue working with Physical Therapy. Yesterday, he did well walking 15 feet. We will continue to monitor him and we will change his dressing today. Once he is medically stable, he can be discharged to rehab later this week. Dictated by BRITTANY Andrade for Dequan Flood MD cc: BRITTANY Andrade MD
[2018-07-03] MEDS: PERIDEX MT SCH ×2 (10:30→20:20)
[2018-07-03] MEDS: GLUCOPHAGE XR PO SCH (10:30)
[2018-07-03] MEDS: COZAAR PO SCH (10:30)
--- NOTE | 2018-07-03 10:31 | PROGRESS NOTE ---
DATE: 07/03/2018 SUBJECTIVE: No acute events overnight. The patient was up to a chair yesterday. The patient has had good drainage from his urethral catheter with over 2 L of output yesterday. Urine remains clear. Urine culture from the operating room is without growth at 24 hours. The patient denies any penile or urethral pain. OBJECTIVE: Vital Signs: Temperature 98.8 degrees, heart rate 91, blood pressure 127/74, oxygen saturation 97%. General: No acute distress. Resting comfortably in bed. Respiratory: Good respiratory effort, without audible wheezing or rales. Genitourinary: Evidence of a phallus with likely lichen sclerosis with abnormal appearance of his meatus. Urethral catheter in place draining clear yellow urine. No evidence of any sediment or blood. Bilateral testicles without masses or nodularity. Musculoskeletal: The patient has a left below-the- knee amputation. LABORATORY DATA: White blood cell count 9.8, hemoglobin 10.9, hematocrit 32.1, platelets 197,000. Sodium 134, potassium 3.7, chloride 98, bicarbonate 24, BUN 16, creatinine 0.9, glucose 202. ASSESSMENT AND PLAN: Mr. Moore is a 42-year-old with history of type 2 diabetes , obesity, history of hypospadias repair as well as multiple urethral procedures in the past, who had initially presented as a consult for difficult urethral catheterization. I was able to perform cystoscopy, urethral dilation, and placement of catheter in the operating room on Monday. Overall, patient has been doing well. His catheter has been draining well. Ultimately, I think his catheter should remain in place for at least 3 days and likely slightly longer. I think ultimately patient will need to talk with Dr. Mcclelland in [place] regarding treatment of his penile urethral stricture. The patient would also likely benefit from suprapubic tube placement in preparation for his procedure. The patient may also have to have a suprapubic tube placed if the patient is going to get a urethral reconstruction. We will leave that up to the reconstruction urologist. We will continue to monitor. Please call with questions or concerns. cc: MD DENISA Madera
[2018-07-03] MEDS: MIRALAX PO SCH ×2 (10:44→20:21)
--- NOTE | 2018-07-03 11:17 | PROGRESS NOTE ---
DATE: 07/03/2018 INTERVAL HISTORY: No acute overnight events. Patient has been eating without any nausea or vomiting. He has not had a bowel movement yet, for which I told him I would order an additional stool softener. SUBJECTIVE: The patient has some pain at the left hip fracture site; however, it is controllable with medication. I discussed with him that I am waiting for a rehabilitation bed placement, following which I would consider discharging him. I answered all of his questions. I also informed him that he has urine culture has not shown any growth to date. OBJECTIVE: Vitals: Currently temperature of 98.8 degrees, pulse 91, respiratory rate 16, blood pressure 127/74, saturating 97% on room air. General: Well built man, not in any acute distress. HEENT: Oral cavity is moist. Lungs: Air entry bilaterally equal. No wheeze, rhonchi, crackles. Cardiovascular: S1, S2 normal. No murmur or gallop. Abdomen: Obese, soft, nontender. Active bowel sounds. Genitourinary: He has Alvarez catheter. Extremities: He has left below-knee amputation, and there is an incision over the left lateral thigh , which is dressed and has some mild tenderness, however decreased from yesterday. Right lower extremity on my previous examination has calluses affecting plantar aspect with poor nail health. Currently, it had good circulation. He is wearing a sock which I did not remove. LABORATORY DATA: No leukocytosis. Hemoglobin and hematocrit in acceptable range, no need of transfusion. Electrolytes suggestive of mild hyponatremia of 134, carbon dioxide of 24. Normal kidney function. His blood glucose has been around 200, which is in acceptable range. MICROBIOLOGICAL DATA: Urine culture: No growth to date. ASSESSMENT AND PLAN: 1. Left femoral neck displaced fracture, closed, status post closed reduction and percutaneous pinning on 07/01/2018. Continue pain management as per Orthopedics recommendation and Xarelto for DVT prophylaxis. 2. Essential hypertension. Continue home losartan at current dose, which is lower than his usual. 3. History of insulin-dependent diabetes mellitus. Continue home metformin and sliding scale insulin. 4. Vitamin D deficiency. He is on cholecalciferol. 5. History of hypospadias. At home he was getting once a month self- catheterization; however, he is now status post a urine catheter placement by Urology intraoperatively. Continue urine catheter for at least 5 days as per Urology recommendation, and he may eventually need reconstructive surgery at [facility] in the future. Currently, urine culture is unremarkable. 6. Constipation. Start patient on MiraLAX. 7. Diabetic foot infection requiring below-knee amputation in 2017 on the left. Aware. Stump appears well healed. DISPOSITION: I am awaiting rehabilitation bed availability, as well as Orthopedics recommendation. At that point, I will consider discharging him. I am anticipating discharge either today or tomorrow. Plan of care was discussed with him. All of his questions have been answered. cc: MD DENISA Correa
[2018-07-03] MEDS: COLACE PO SCH (20:20)
[2018-07-04 06:42] LABS: HEMATOCRIT 32.6 % (42.0-52.0); HEMOGLOBIN 11.2 g/dL (14.0-18.0)
[2018-07-04] MEDS: HUMALOG SUBQ SCH ×4 (06:58→21:58)
[2018-07-04] MEDS: XARELTO PO SCH (06:58)
[2018-07-04 06:59] LABS: AGAP 14; BUN 21 mg/dL (8-22); CALCIUM 9.3 mg/dL (8.8-10.2); CHLORIDE 95 mmol/L (98-107); COSMO 277; CREATININE 0.9 mg/dL (0.7-1.2); ESTIMATED GFR > 60; GLUCOSE 229 mg/dL (70-104); POTASSIUM 3.5 mmol/L (3.5-5.1); SODIUM 133 mmol/L (136-145); TCO2 24 mmol/L (25-35)
[2018-07-04] MEDS: COZAAR PO SCH (08:54)
[2018-07-04] MEDS: TYLENOL PO SCH ×2 (08:54→18:07)
[2018-07-04] MEDS: OXY IR PO PRN ×4 (08:54→22:03)
[2018-07-04] MEDS: PERIDEX MT SCH ×2 (08:54→21:55)
[2018-07-04] MEDS: GLUCOPHAGE XR PO SCH (08:54)
[2018-07-04] MEDS: MIRALAX PO SCH (08:55)
--- NOTE | 2018-07-04 13:33 | PROGRESS NOTE ---
DATE: 07/04/2016 SUBJECTIVE: Mr. Moore is a 42-year-old male who is postoperative day 3 from a left femoral neck fracture closed reduction and percutaneous pinning. He is doing very well. OBJECTIVE: He is a well developed, well nourished male. He is alert, oriented, and cooperative with the examination. He is in no acute distress. His left hip dressings are clean, dry, and intact. His left leg is neurovascularly intact. ASSESSMENT: Stable postoperative day 3 from a left hip closed reduction and percutaneous pinning of a left femoral neck fracture. PLAN: We will continue current management, working with physical therapy and managing his pain. Once he is medically stable, he can be discharged to rehab and he is instructed to follow up in the office with Dr. Flood next week. Dictated by BRITTANY Andrade for Dequan Flood MD cc: BRITTANY Andrade MD
[2018-07-04] MEDS ORDERED: BASAGLAR SUBQ ONE (14:58)
--- NOTE | 2018-07-04 15:23 | PROGRESS NOTE ---
DATE: 07/04/2018 INTERVAL HISTORY: No acute overnight events. Patient has had multiple bowel movements and he is feeling better. He states that he is still awaiting insurance authorization before he can be discharged to rehab. Currently he is denying excessive pain at the surgery site. OBJECTIVE: Vital signs: Temperature 98.6 degrees, pulse 90, respiratory rate 16, blood pressure 116/62, saturating 100% room air. General: Appears obese, not in any acute distress. HEENT: Oral cavity is moist. Respiratory: Air entry bilaterally equal. No wheeze, rhonchi, crackles. Cardiovascular: S1, S2 normal. No murmur, rub, or gallop. Not tachycardic. Abdomen: Obese, soft, nontender. Active bowel sounds. : He has a Alvarez catheter in place. Extremities: He has a left below-knee amputation. There is a small incision site over the left lateral thigh which is only mildly tender. It is dressed and not soaked. Right lower extremity, on my previous examination he had a callus affecting plantar aspect with poor nail health. Currently circulation is intact bilaterally. LABS: Suggestive of hemoglobin of 11.2. Sodium of 133, chloride of 95. Normal kidney function. Hyperglycemia with most readings in acceptable range. MICROBIOLOGY: Urine culture no growth to date. ASSESSMENT AND PLAN: 1. Left femoral neck closed and displaced fracture status post closed reduction and percutaneous pinning on July 01. Today is postoperative day 3. Continue pain management as per Orthopedic's recommendation and Xarelto for DVT prophylaxis. He does not have constipation anymore. 2. Essential hypertension. Continue home losartan at a slightly lower than his home dose. Currently blood pressure is in acceptable range. 3. History of insulin-dependent diabetes mellitus. I will continue his home metformin and high dose sliding scale insulin. 4. History of hypospadias. At home he was once month self catheterization. However, he is now status post a urine catheter placement by Urology intraoperatively at the time of his surgery. Continue urine catheter for at least 5 days as per Urology's recommendation. He may eventually need reconstructive surgery at [facility] in the future. His urine culture is unremarkable. He would likely need urine catheter at the time of discharge; however, pending Urology's recommendation. 5. Constipation, resolved. 6. Continue cholecalciferol for vitamin D deficiency. 7. Diabetic foot infection requiring below-knee amputation in 2017 on the left. Aware. Stump appears well healed. 8. Disposition. Patient remains inside the hospital while we are awaiting insurance authorization so that he can be transferred to [facility]. Plan of care was discussed with him. All of his questions have been answered. cc: Damien Tipton MD
[2018-07-04] MEDS: COLACE PO SCH (21:55)
[2018-07-05] MEDS: MIRALAX PO SCH ×2 (02:34→10:01)
[2018-07-05] MEDS: TYLENOL PO SCH ×2 (02:34→10:01)
[2018-07-05] MEDS: HUMALOG SUBQ SCH ×2 (06:22→11:44)
[2018-07-05] MEDS: XARELTO PO SCH (06:22)
[2018-07-05] MEDS: OXY IR PO PRN ×3 (06:22→13:31)
[2018-07-05] MEDS: MORPHINE IV PRN (07:28)
[2018-07-05 07:36] LABS: AGAP 12; BUN 23 mg/dL (8-22); CHLORIDE 99 mmol/L (98-107); COSMO 280; CREATININE 0.8 mg/dL (0.7-1.2); ESTIMATED GFR > 60; GLUCOSE 206 mg/dL (70-104); POTASSIUM 3.7 mmol/L (3.5-5.1); SODIUM 135 mmol/L (136-145); TCO2 24 mmol/L (25-35)
[2018-07-05] MEDS: GLUCOPHAGE XR PO SCH (10:00)
[2018-07-05] MEDS: PERIDEX MT SCH (10:00)
[2018-07-05] MEDS: COZAAR PO SCH (10:00)
--- NOTE | 2018-07-05 15:59 | DISCHARGE SUMMARY ---
ADMISSION DATE: 06/30/2018 DISCHARGE DATE: 07/05/2018 DISCHARGE DIAGNOSES: 1. Left femoral neck fracture, status post closed reduction and percutaneous pinning on July 01, 2018. 2. Hypertension. 3. History of diabetes. 4. History of hypospadias, status post cystoscopy with urethral dilation and catheter placement due to stricture of the anterior urethra. 5. Constipation, resolved. 6. Vitamin D deficiency. 7. Diabetic foot infection, status post left [id number] amputation in 2017. HOSPITAL COURSE: This is a 42-year-old male with a past medical history of obesity and type 2 diabetes, presented to the emergency department after having a mechanical trip and fall while at work the date of admission on 06/30/2018. Apparently he was moving a cardboard display when the header fell off and he subsequently slipped on the board that was on the floor. He hit the left side of the body and he immediately began experiencing pain in the hip. No head trauma. No syncope. No chest pain or dyspnea. In the ER he was found to have a left femoral neck fracture, he was slightly anemic, blood sugar 239, and asymptomatic bacteriuria. Orthopedic Surgery was consulted and they perform a closed reduction and percutaneous pinning of the left nondisplaced subcapital femoral neck. Since they started having problems placing a catheter on this patient, Dr. Angelito Uribe was consulted. This patient has a history of hypospadias repair and a cystoscopy with urethral dilation and catheter placement was done since this patient has an anterior urethral stricture. We kept the Alvarez for a few days as recommended by Urology Department and today in the morning it was removed. As per the patient, he was able to void without any problems. Physical Therapy on board. He has been placed back on his home medications. Also, he has been placed on anticoagulation to avoid any kind of blood clots. Since this patient has only one lower extremity and he has a recent fracture on the left side, his hip, I will keep the blood thinner for a few days. Hopefully we will stop that in 10 days or so, once his moving more to avoid blood clots. At the moment of discharge, the patient was in a stable medical condition, tolerating p.o., and tolerating physical therapy. OBJECTIVE: Vital signs: Temperature 98.1 degrees, pulse 88, respiratory rate 18, blood pressure 120/74, oxygen saturation 98 on room air. HEENT: Head normocephalic. No trauma. PERRLA. Neck: Supple. No JVD. No masses. Central trachea. Chest: Clear to auscultation. No wheezing. No rales. Abdomen: Soft, nontender, nondistended. No hepatosplenomegaly. Extremities: Left lower extremity amputation [id number]. He has some dressings which are clean at the level of the left hip. Neurological: The patient is alert and oriented x3. No focal deficits. LABORATORY: Sodium 135, potassium 3.7, chloride 99, bicarbonate 24, BUN 23, creatinine 0.8, glucose 206, calcium 9. DISCHARGE MEDICATIONS: Metformin extended release two tablets p.o. q.a.m., insulin NovoLog 70/30 per protocol, losartan 1 tablet p.o. daily, Xarelto 10 mg p.o. daily at 6 a.m. for 10 days, MiraLAX 17 g p.o. b.i.d. , Oxycodone IR 5 mg p.o. q.3 hours as needed, milk of magnesium 30 mL p.o. daily as needed, docusate 200 mg p.o. at bedtime, and vitamin D3 5000 units p.o. q.7 days. TIME SPENT: Time discharging this patient, 30 minutes. cc: Michele Luis MD
[2018-07-05 16:58] VITALS: BP 125/67
--- NOTE | 2018-07-05 17:32 | PROGRESS NOTE ---
DATE: 07/05/2018 SUBJECTIVE: No acute events overnight. The patient's Alvarez catheter was removed this morning, and patient has been able to void multiple times. Overall, he is doing well. Denies any penile pain or hematuria. OBJECTIVE: Vital signs: Temperature 97.9 degrees, heart rate 88, blood pressure 125/67, oxygen saturation 97% on room air. Abdomen: Soft, nontender, nondistended. Respiratory: No increased work of breathing. Genitourinary: Suprapubic nontender, nondistended. Hypospadias appearance with significant lichen sclerosis overlying the glans. No evidence of any bleeding per urethra. Musculoskeletal: [id number] amputation of the left extremity. LABORATORY DATA: Sodium 135, potassium 3.7, chloride 99, bicarbonate 24, BUN 23 , creatinine 0.8, glucose 206. ASSESSMENT AND PLAN: Mr. Moore is a 42-year-old with a history of hypospadias repair with multiple penile procedures, who initially presented as difficult urethral catheterization , requiring cystoscopy and urethral dilation on Monday. The patient's Alvarez catheter was removed today, and the patient has been voiding without issue so far. Due to history of recurrent urethral strictures, I recommended him proceeding with clean intermittent catheterization twice daily to keep this area open. The patient has done this in the past and had good results with keeping his stricture patent. The patient was scheduled to see Dr. Rocha at [facility] when his insurance ran out several years ago and desires to proceed back to [facility] for further management. We will arrange for referral to [facility]. We will plan to see him back in several weeks to ensure that he is adequately emptying and not holding a elevated PVR. Recommended b.i.d.clean intermittent catheterization. The patient was re-educated on this and will proceed. cc: Angelito Uribe MD [facility]
== END 2018-07-05 17:38 | DRG 482 ==
LOC: ED 11:10 → 4N 14:33 → SUATTDRO 14:33
PROVIDERS: ATTEND Internal Medicine
CPT/HCPCS: 71010; 71045; 73502; 73552; 76000; 80048; 80053; 80061; 81001; 82306; 82728; 82746; 82948; 83036; 83540; 83550; 83721; 83735; 84443; 85014; 85018; 85025; 87088; 87205; 93005; 93010; 94761; 94799; 96374; 97110; 97116; 97162; 97530; 99285; A9270; C1713; J0690; J1815; J2250; J2270; J2370; J2405; J3010; J7030; XXXXX